=== PATIENT | female | born 1955 | race Caucasian/White ===

== ENCOUNTER → 2018-10-25 | Outpatient (CLI) | payer OTHER ==
[2014-03-22 15:09] VITALS: BP 137/89
[~2018-10-25] MED LIST: ASPI-482 PO; CALCIUM PO; CERT400S SQ; CHOL500016 PO; FOLI1TAB16 PO; HYDR-2761 PO; HYDR200T71 PO; MULT1TAB52 PO; OXYC1TAB15 PO; Oxycodone Hcl/Acetaminophen PO; RISE35TA5 PO; TRAM50TA PO; WARF3TAB54 PO; Warfarin Sodium MC
--- NOTE | 2018-10-25 16:44 | KCIC ---
Left knee, 2 views, 10/25/2018: HISTORY: Chronic knee pain Comparison is made to a study from 03/19/2014. There is no radiographic evidence of loosening or infection. No new bony abnormality is detected. IMPRESSION: Stable left total knee prosthesis. Right shoulder, 2 views, 10/25/2018: HISTORY: Pain No fracture or dislocation is identified. There are mild sclerotic and cystic changes at rotator cuff insertion sites on the greater tuberosity. There is minimal spurring at the AC joint. The periarticular soft tissues are unremarkable. IMPRESSION: 1. Mild degenerative change. 2. No acute bony abnormality is detected. Right humerus, 2 views, 10/25/2018: HISTORY: Pain No fracture or destructive bony lesion is seen. The soft tissues are unremarkable. IMPRESSION: No significant right humeral abnormality is detected. Electronically signed by: Benjamin Rodriguez MD (10/25/2018 4:41 PM) [facility]
== END | disposition home or self-care (01) ==
LOC: KCIC 15:32
PROVIDERS: ATTEND Internal Medicine
DX: M19.011 Primary osteoarthritis, right shoulder (principal); M79.601 Pain in right arm; Z96.652 Presence of left artificial knee joint
CPT/HCPCS: 73030; 73060; 73560

== ENCOUNTER → 2018-12-08 | Outpatient (CLI) | payer OTHER ==
[2014-03-22 15:09] VITALS: BP 137/89
--- NOTE | 2018-12-08 17:08 | KCIC ---
Right shoulder 3 views. HISTORY: Right shoulder pain M 25.511 3 views were taken of the right shoulder. There is no fracture or dislocation. There is slight irregularity at the greater tuberosity which can be seen with impingement syndrome. IMPRESSION: 1. No fracture or dislocation right shoulder. 2. Mild irregularity at the greater tuberosity. Electronically signed by: Ngiel Cooper MD (12/08/2018 5:05 PM) [facility]
== END | disposition home or self-care (01) ==
LOC: KCIC 16:02
PROVIDERS: ATTEND Internal Medicine
DX: M25.811 Other specified joint disorders, right shoulder (principal)
CPT/HCPCS: 73030